=== PATIENT | female | born 1975 | race Caucasian/White ===

== ENCOUNTER 2016-10-14 14:05 | Emergency (ER) | payer BC ==
[2016-10-14 14:31] VITALS: BP 132/68
--- NOTE | 2016-10-14 14:55 | ED Physician Documentation ---
Sore Throat/Dental Pain - HISTORIAN Historian: patient, friend - HPI Stated Complaint: Sore throat Chief Complaint: Sore Throat Additional Information: sore throat earache ache all over fever chills-no cough Onset: days ago (2-3) Associated Symptoms: fever, chills, sore throat, moderate - ROS CONST: no problems CVS/RESP: none GI/: denies: problems urinating MS/SKIN/LYMPH: muscle aches NEURO/PSYCH: none - PAST HX Past History: other Allergies/Adverse Reactions: Allergies Allergy/AdvReac Type Severity Reaction Status Date / Time No Known Allergies Allergy Verified 10/14/16 14:25 Home Medications: Ambulatory Orders Medication Instructions Recorded Amoxicillin [Amoxil] 500 mg PO QID #40 capsule 10/14/16 Citalopram Hydrobromide [Celexa] 20 mg PO QD 10/14/16 Lisinopril/Hydrochlorothiazide 1 each PO DAILY 10/14/16 [Zestoretic] - SOCIAL HX Smoking History: non-smoker Alcohol Use: none Drug Use: none - FAMILY HX Family History: No - VITAL SIGNS Vital Signs: Vital Signs Temp Pulse Resp BP Pulse Ox 97.5 F L 97 H 18 132/68 97 10/14/16 14:26 10/14/16 14:26 10/14/16 14:26 10/14/16 14:26 10/14/16 14:26 - REVIEWED ASSESSMENTS Nursing Assessment Reviewed: Yes Vitals Reviewed: Yes ED Results Lab/Radiology - Orders Orders: ED Orders Category Date Time Status Rapid Strep [GRP A STREP SCREEN] Stat Lab 10/14/16 Ordered Sore throat Physical Exam - EXAM General Appearance: moderate distress Head/Neck: head nml inspection, pain over sinuses (slight) Eyes: eyes nml inspection Mouth/Throat: lips nml, pharyngeal erythema, tonsillar swelling. No: pharynx nml Ear/Nose: TM erythema (very mild frank lt) Respiratory: breath sounds nml CVS: reg. rate & rhythm, heart sounds nml Abdomen: soft, non-tender Extremities: non-tender, nml ROM. No: tenderness Skin: No: cyanosis, diaphoresis, jaundice Neuro/Psych: oriented x3, mood/affect nml Discharge Clincal Impression: Acute streptococcal pharyngitis Prescriptions: Amoxicillin [Amoxil] 500 mg PO QID #40 capsule Home Medications: Ambulatory Orders Amoxicillin [Amoxil] 500 mg PO QID #40 capsule 10/14/16 Citalopram Hydrobromide [Celexa] 20 mg PO QD 10/14/16 Lisinopril/Hydrochlorothiazide [Zestoretic] 1 each PO DAILY 10/14/16 Condition: Good Disposition: HOME, SELF-CARE Decision to Admit: NO Decision Time: 14:59
== END 2016-10-14 14:58 | disposition home or self-care (01) ==
LOC: ED 14:05
DX: J02.0 Streptococcal pharyngitis (principal)
CPT/HCPCS: 87880; 99282

== ENCOUNTER 2018-10-20 17:13 | Emergency (ER) | payer BC ==
[2018-10-20 17:35] VITALS: BP 139/83
--- NOTE | 2018-10-20 18:17 | ED Physician Documentation ---
Upper Respiratory Symptoms - HISTORIAN Historian: patient - HPI Stated Complaint: Throat pain Chief Complaint: Upper Respiratory Symptoms Onset: days ago Context: denies: recent foreign travel, insect bite(s), tick(s), recent chemotherapy, multiple patients, same sx, other Severity: moderate Associated Symptoms: fever, chills, earache, runny nose, productive cough. denies: sinus drainage, sore throat, shortness of breath, hurts to breathe Further Comments: yes (42 year old female presents with complaints of body aches, fever, right neck "gland pain", right ear ache and fatigue.) - ROS CONST/EYES: denies: weakness CVS/RESP: none LYMPH: denies: leg swelling, rash, swollen glands, ankle swelling, other GI/: none NEURO/PSYCH: denies: fainting, dizziness, confusion, anxiety, depression, other MS/SKIN: denies: joint pain, muscle aches, rash, other - PAST HX Lung Disease: denies: none PE Risk Factors: hypertension, other (depression) Allergies/Adverse Reactions: Allergies Allergy/AdvReac Type Severity Reaction Status Date / Time No Known Allergies Allergy Verified 10/20/18 17:55 Home Medications: Ambulatory Orders Medication Instructions Recorded Citalopram Hydrobromide [Celexa] 40 mg PO QD 10/14/16 Lisinopril/Hydrochlorothiazide 1 each PO DAILY 10/14/16 [Zestoretic] Azithromycin [Zithromax] 250 mg PO DAILY #6 tablet 10/20/18 - SOCIAL HX Smoking History: non-smoker - FAMILY HX Family History: denies: none - VITAL SIGNS Vital Signs: Vital Signs Temp Pulse Resp BP Pulse Ox 97.5 F L 88 18 139/83 99 10/20/18 18:22 10/20/18 18:22 10/20/18 18:22 10/20/18 18:22 10/20/18 18:22 - REVIEWED ASSESSMENTS Nursing Assessment Reviewed: Yes Vitals Reviewed: Yes ED Results Lab/Radiology - Lab Results Lab Results: Lab Results 10/20/18 10/20/18 17:44 17:44 Influenza Type A Ag Negative (NEGATIVE) Influenza Type B Ag Negative (NEGATIVE) Group A Strep Screen Negative (NEGATIVE) - Orders Orders: ED Orders Category Date Time Status INFLUENZA A&B Stat Lab 01/14/19 17:44 Completed Rapid Strep [GRP A STREP SCREEN] Stat Lab 10/20/18 17:44 Completed THROAT CULTURE Stat Lab 10/20/18 17:44 Received Upper Respiratory Symptoms - EXAM General Appearance: mild distress EENT: eyes nml inspection, nml ENT inspection, lids & conjunct. nml, PERRL, TM erythema, TM dullness (R), nose nml, pharynx nml, airway nml Respiratory: no resp. distress, breath sounds nml, no pain on inspiration, speaks full sentences, no pleuritic chest pain Abdomen: non-tender, no organomegaly, nml bowel sounds, no distention CVS: reg rate & rhythm, heart sounds normal, equal pulses, no murmur, no gallop, PMI nml, no JVD, no friction rub, 24 Skin: color nml, no rash, warm,dry Neuro/Psych: oriented x3, neuro intact, mood/affect nml, CN's nml as tested Discharge Clincal Impression: Right otitis media Qualifiers: Otitis media type: suppurative Chronicity: acute Recurrence: not specified as recurrent Spontaneous tympanic membrane rupture: without spontaneous rupture Qualified Code(s): H66.001 - Acute suppurative otitis media without spontaneous rupture of ear drum, right ear Prescriptions: Azithromycin [Zithromax] 250 mg PO DAILY #6 tablet Referrals: Guillermina Ohara MD [Primary Care Provider] - 2 Days Additional 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 Increase your fluid intake juices, hot tea, non-caffeinated beverages Vitamin C may be helpful in decreasing the length of your cold. Use a humidifier in the room where you sleep. You can also sit in a steam filled bathroom 1-2 times a day. Tylenol every 4 hours 650mg -1000mg (do not exceed 4000mg in 24 hours) as needed for fever, pain and body aches. Alternate with Ibuprofen Ibuprofen 600-800mg every 6 hours as needed for fever, pain and body aches. See your primary care doctor if your symptoms become worse or do not improve in the next 2-3 days. Condition: Stable Disposition: 01 HOME, SELF-CARE Decision to Admit: NO Decision Time: 18:16
== END 2018-10-20 18:22 | disposition home or self-care (01) ==
LOC: ED 17:13
DX: H66.001 Acute suppurative otitis media without spontaneous rupture of ear drum, right ear (principal)
CPT/HCPCS: 87070; 87400; 87880; 99282; 99283

== ENCOUNTER 2018-12-07 17:26 | Emergency (ER) | payer BC ==
[2018-12-07] MEDS ORDERED: Lidocaine 1% 5ml 10 MG/ML VIAL IVP ONE (17:52)
[2018-12-07] MEDS ORDERED: cefTRIAXone SODIUM 1 GM INJ IM ONE (17:52)
[2018-12-07] MEDS ORDERED: methylPREDNISolone SOD SUCC 125 MG/2 ML VIAL IM ONE (17:52)
--- NOTE | 2018-12-07 17:52 | ED Physician Documentation ---
Upper Respiratory Symptoms - HISTORIAN Historian: patient - HPI Stated Complaint: cough, congestion Chief Complaint: Cough/ Upper Respiratory Additional Information: Patient presents to ED with a 10 day history of nasal congestion, cough and sinus pain. Today she states her chest began to feel heavy so she came to the ER. Patient reports chills and sweats but no fever. Onset: days ago (10) Duration: constant Context: denies: recent foreign travel Severity: moderate Associated Symptoms: denies: chills, sweating, earache, runny nose, sinus pain, sinus drainage, hoarseness, hurts to breathe, headache Worsened by Deep Breath: Yes Further Comments: yes - ROS CONST/EYES: denies: weakness CVS/RESP: shortness of breath LYMPH: denies: ankle swelling GI/: none NEURO/PSYCH: denies: dizziness MS/SKIN: denies: muscle aches - PAST HX Lung Disease: none PE Risk Factors: hypertension Surgeries/Procedures: none Allergies/Adverse Reactions: Allergies Allergy/AdvReac Type Severity Reaction Status Date / Time No Known Allergies Allergy Verified 12/07/18 17:54 Home Medications: Ambulatory Orders Medication Instructions Recorded Citalopram Hydrobromide [Celexa] 40 mg PO QD 10/14/16 Lisinopril/Hydrochlorothiazide 1 each PO DAILY 10/14/16 [Zestoretic] Cefdinir 300 mg PO BID #20 capsule 12/07/18 Neomycin/Polymyxin B/Hydrocort 4 drop OT TID #1 bottle 12/07/18 [Cortisporin Otic] - SOCIAL HX Smoking History: non-smoker Alcohol Use: none Drug Use: none - FAMILY HX Family History: none - VITAL SIGNS Vital Signs: Vital Signs Temp Pulse Resp BP Pulse Ox 97.8 F 87 19 160/97 96 12/07/18 17:27 12/07/18 17:27 12/07/18 17:27 12/07/18 17:27 12/07/18 17:27 - REVIEWED ASSESSMENTS Nursing Assessment Reviewed: Yes Vitals Reviewed: Yes ED Results Lab/Radiology - Orders Orders: ED Orders Category Date Time Status INFLUENZA A&B Stat Lab 12/07/18 Uncollected Lidocaine 1% 5ml(IM or SUTURE) [Xylocaine] Med 12/07/18 17:52 Discontinued 50 mg IVP NOW ONE cefTRIAXone SODIUM [Rocephin] Med 12/07/18 17:52 Discontinued 1 gm IM NOW ONE methylPREDNISolone SOD SUCC [Solu-MEDROL] Med 12/07/18 17:52 Discontinued 125 mg IM NOW ONE Upper Respiratory Symptoms - EXAM General Appearance: no acute distress, alert EENT: pain over sinuses, frontal, maxillary, other (left ear canal with erythema) Respiratory: no resp. distress, breath sounds nml Abdomen: non-tender CVS: reg rate & rhythm, heart sounds normal Skin: color nml, no rash, warm,dry Extremities: no edema Neuro/Psych: oriented x3, mood/affect nml Discharge Clincal Impression: Maxillary sinusitis, acute Qualifiers: Recurrence: non-recurrent Qualified Code(s): J01.00 - Acute maxillary sinusitis, unspecified Otitis externa Qualifiers: Otitis externa type: swimmer's ear Chronicity: acute Laterality: right Qualified Code(s): H60.331 - Swimmer's ear, right ear Prescriptions: Cefdinir 300 mg PO BID #20 capsule Neomycin/Polymyxin B/Hydrocort [Cortisporin Otic] 4 drop OT TID #1 bottle Referrals: Guillermina Ohara MD [Primary Care Provider] - 2 Days Additional Instructions: 1. Tylenol and/or ibuprofen as needed for pain/fever 2. Sinus irrigation may be helpful 3. Mucinex daily until antibiotics are complete 4. Cool mist vaporizer with sleep 5. Follow up with PCP nickie 1 week. 6. Return to ER for new or worsening symptoms. Condition: Stable Decision to Admit: NO Date of Decison to Admit: 12/07/18 Decision Time: 18:07
[2018-12-07 18:19] VITALS: BP 160/97
== END 2018-12-07 18:26 ==
LOC: ED 17:26
DX: J01.00 Acute maxillary sinusitis, unspecified (principal); H60.331 Swimmer's ear, right ear
CPT/HCPCS: 87400; 96372; 99283; 99284; J0696; J2930

== ENCOUNTER 2019-08-05 15:00 | Emergency (ER) | payer BC ==
--- NOTE | 2019-08-05 15:03 | ED Physician Documentation ---
General Adult - HISTORIAN Historian: patient (Pt is a 43 yo female) - HPI Stated Complaint: R great toe pain Chief Complaint: General Adult Onset: hours Timing: still present Severity: moderate Further Comments: yes (Pt is a 43 yo female with c/o spontaneous onset of pain in the R great toe at the metatarsal-phalangeal joint. Pt did not injure her toe. Pt has not taken any medications for relief. Pt has no hx gout and has not had this problem before.) - ROS CONST: no problems EYES/ENT: none CVS/RESP: none GI/: none MS/SKIN/LYMPH: other (R great toe pain) - PAST HX Past History: other (Depression, HTN) Surgeries/Procedures: cholecystectomy Allergies/Adverse Reactions: Allergies Allergy/AdvReac Type Severity Reaction Status Date / Time No Known Allergies Allergy Verified 08/05/19 15:18 Home Medications: Ambulatory Orders Medication Instructions Recorded Citalopram Hydrobromide [Celexa] 40 mg PO QD 10/14/16 Lisinopril/Hydrochlorothiazide 1 each PO DAILY 10/14/16 [Zestoretic] - SOCIAL HX Smoking History: non-smoker - FAMILY HX Family History: No - VITAL SIGNS Vital Signs: Vital Signs Temp Pulse Resp BP Pulse Ox 160/97 12/07/18 18:26 - REVIEWED ASSESSMENTS Nursing Assessment Reviewed: Yes Vitals Reviewed: Yes Progress - Progress Progress: X-ray R foot: No signs of fracture or dislocation is seen. No bony erosions are seen. 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 Mild spurring at the ankle joint and in the posterior surface of the calcaneus is noted. Impression: No acute fracture. Degenerative changes at the ankle. Heel spur. May take Ibuprofen 200 mg, three or four tablets every 8 hours with food. Post-op shoe. (Pt expressed pain relief after using post-op shoe.) General Adult Physical Exam - PHYSICAL EXAM GENERAL APPEARANCE: mild distress NECK: normal inspection, supple RESPIRATORY: no resp distress, chest non-tender, breath sounds normal CVS: reg rate & rhythm BACK: normal inspection SKIN: warm/dry, normal color EXTREMITIES: other (tenderness R great toe, metatarsal-phalangeal joint. No increased warmth or redness) NEURO: oriented X3, motor nml, sensation nml Discharge Clincal Impression: R foot pain Referrals: Guillermina Ohara MD [Primary Care Provider] - Condition: Good Disposition: 01 HOME, SELF-CARE Decision to Admit: NO Decision Time: 16:34
[2019-08-05 15:25] VITALS: BP 120/54
[2019-08-05] MEDS: DIPH,PERTUSS(ACELL),TET VAC/PF 0.5 ML DISP.SYRIN IM ONE (16:12)
--- NOTE | 2019-08-05 16:15 | Diagnostic Imaging Report ---
PATIENT MR#: [id number] PATIENT PATIENT NAME: ADIEL AUSTIN DATE OF : 1975 REFERRING PHYSICIAN: Alan Braswell EXAM DATE: 08/05/2019 ACCESSION NUMBER: [id number] EXAM DESCRIPTION: FOOT 3 VIEWS OR MORE Exam: Right foot. History: Pain. AP, lateral and oblique view of the right foot are submitted. No signs of fracture or dislocation is seen. No bony erosions are seen. Congenital fusion of the 5t h distal interphalangeal joint is noted. Mild spurring at the ankle joint and in the posterior surface of the calcaneus is noted. Impression: No acute fracture. Degenerative changes at the ankle. Heel spur. Read by: Dr. Singh Singletary Transcribed by: Transcribed Date: Electronically signed by: Dr. Singh Singletary Date signed: 08/05/2019 4:14:52 PM
== END 2019-08-05 16:49 | disposition home or self-care (01) ==
LOC: ED 15:00
DX: M79.671 Pain in right foot (principal); M79.674 Pain in right toe(s)
CPT/HCPCS: 73630; 84550; 99282

== ENCOUNTER 2019-09-23 13:18 | Emergency (ER) | payer BC ==
--- NOTE | 2019-09-23 13:42 | ED Physician Documentation ---
General Adult - HISTORIAN Historian: patient - HPI Stated Complaint: bodyaches, chills Chief Complaint: General Adult Additional Information: Patient presents to ED with a 24 hour history of bodyaches, chills, sinus congestion and sore throat. Onset: hours (24) Timing: still present Severity: moderate - ROS CONST: sweating EYES/ENT: sore throat, nasal congestion CVS/RESP: denies: shortness of breath, cough GI/: abdominal pain, nausea. denies: vomiting MS/SKIN/LYMPH: none NEURO/PSYCH: denies: headache - PAST HX Past History: other (depression) Other History: none Surgeries/Procedures: none Allergies/Adverse Reactions: Allergies Allergy/AdvReac Type Severity Reaction Status Date / Time No Known Allergies Allergy Verified 09/23/19 13:46 Home Medications: Ambulatory Orders Medication Instructions Recorded Citalopram Hydrobromide [Celexa] 40 mg PO QD 10/14/16 Lisinopril/Hydrochlorothiazide 1 each PO DAILY 10/14/16 [Zestoretic] Methylprednisolone [Medrol] 4 mg PO DIRECTED #1 tab.ds.pk 09/23/19 Montelukast Sodium [Singulair] 1 tab PO DAILY 09/23/19 clonazePAM [Klonopin] 1 tab PO TID PRN 09/23/19 - SOCIAL HX Smoking History: non-smoker Alcohol Use: none Drug Use: none - FAMILY HX Family History: No - VITAL SIGNS Vital Signs: Vital Signs Temp Pulse Resp BP Pulse Ox 120/54 08/05/19 16:59 - REVIEWED ASSESSMENTS Nursing Assessment Reviewed: Yes Vitals Reviewed: Yes ED Results Lab/Radiology - Lab Results Lab Results: Rapid strep - neg Influenza A/B - neg - Orders Orders: ED Orders Category Date Time Status GRP A STREP SCREEN Stat Lab 09/23/19 Ordered INFLUENZA A&B Stat Lab 09/23/19 Uncollected General Adult Physical Exam - PHYSICAL EXAM GENERAL APPEARANCE: no distress EENT: JAZZY NECK: supple. No: lymphadenopathy RESPIRATORY: no resp distress, chest non-tender, breath sounds normal CVS: reg rate & rhythm, heart sounds normal ABDOMEN: soft BACK: normal inspection SKIN: warm/dry EXTREMITIES: non-tender, no edema NEURO: oriented X3, mood/affect nml ( ) Discharge Clincal Impression: Viral upper respiratory illness Prescriptions: Methylprednisolone [Medrol] 4 mg PO DIRECTED #1 tab.ds.pk Referrals: Vera Wu PRN [Primary Care Provider] - 2 Days Additional Instructions: 1. Take Medrol dose pack as directed 2. Tylenol 650mg every 4 hours as needed for fever/bodyaches 3. Drink plenty of fluids to maintain proper hydration. Avoid caffeine and alcohol 4. Wash hands frequently, avoid contact with others 5. Follow up with PCP within 1 week 6. Return to ER for new or worsening symptoms Condition: Stable Disposition: 01 HOME, SELF-CARE Decision to Admit: NO Date of Decison to Admit: 09/23/19 Decision Time: 13:57
[2019-09-23 13:46] VITALS: BP 135/81
== END 2019-09-23 14:00 | disposition home or self-care (01) ==
LOC: ED 13:18
DX: J06.9 Acute upper respiratory infection, unspecified (principal)
CPT/HCPCS: 87070; 87400; 87880; 99282; 99284